=== PATIENT | female | born 1990 | race African-American/Black ===

== ENCOUNTER → 2022-11-19 10:37 | Outpatient (BNVA) | payer OTHER, SELFPAY | PROVIDERS: PCP Internal Medicine; Referring Provider Internal Medicine; Visit Provider Physician Assistant Surgical ==

== ENCOUNTER → 2022-12-19 14:12 | Outpatient (BNVA) | payer OTHER, SELFPAY | PROVIDERS: PCP Internal Medicine; Visit Provider Physician Assistant Surgical | DX: E66.01 Morbid (severe) obesity due to excess calories (principal); Z68.41 Body mass index [BMI] 40.0-44.9, adult | CPT/HCPCS: 99202 ==

== ENCOUNTER 2023-01-11 09:10 | Outpatient (REF) | payer OTHER, SELFPAY ==
[2023-01-11 11:26] LABS: Estimated Average Glucose 94 mg/dL; Hemoglobin A1c % 4.9 %
[2023-01-16 00:52] LABS: Zinc 71 mcg/dL (60-130)
[2023-01-16 05:09] LABS: Vitamin A 38 mcg/dL (38-98)
[2023-01-16 14:53] LABS: Vitamin B1 9 nmol/L (8-30)
[2023-01-17 09:09] LABS: H Pylori Breath Test Positive (Negative)
== END 2023-01-11 09:11 | disposition home or self-care (01) ==
LOC: HO.LAB 09:10
PROVIDERS: PCP Internal Medicine; Visit Provider Physician Assistant Surgical
DX: E66.01 Morbid (severe) obesity due to excess calories (principal)
CPT/HCPCS: 36415; 80053; 80061; 82306; 82607; 82728; 82746; 83013; 83036; 83525; 83540; 83970; 84425; 84443; 84590; 84630; 85025; 86140; 99211; 99212

== ENCOUNTER 2023-01-21 10:57 | Outpatient (AMB) | payer OTHER, SELFPAY ==
--- NOTE | 2023-01-21 11:13 | A.OFFVIS_ITS ---
Intake Intake Visit Reasons: (OV) Initial Nutrition [facility] Director Of Strategic Partnerships Required: No Allergies No Known Allergies Allergy (Verified 01/11/23 09:31) HPI Nutrition Presentation Reason for consult elevated BMI Diet Assmnt Details Wakes up at 6:30-7am 8-10am Premade Premier protein 30g Atkins protein bar 3pm shake 6:30pm dinner meal chicken and salad with boiled eggs . Half sweet potato with chicken and brocooli . She likes to meal and Sundays for the entire week. Has two children ages 11 and 5 , cooks them a separate meal. Exercise: going to the gym daily everyday 2 miles on the treadmill. [facility] online classes: 07/15 Dietary counseling reduction Who buys your food self Who prepares/cooks your food self Meal frequency regular: breakfast, lunch, dinner (Spaghetti, ) and snacks Lifestyle Eating out 4 or more times/week Food frequency Dairy: daily (lactaid, cheese, yogurt), Fruit: daily, Vegetables: daily (canned ), Meats/poultry/fish (protein): daily (minimal fish, eats chicken, beef ), Water: daily (seltzer water ), Soda: never, Juice: several times weekly (and sweetened ) and Coffee: several times weekly (AM coffee) Diagnosis Nutrition problem #1 overweight/obesity As related to (etiology) #1 excess energy intake and physical inactivity As evidenced by (sign/symptom) #1 high BMI Monitoring/Goals Nutrition problem monitoring total energy intake, level of knowledge/skill, total PRO intake, total CHO intake and weight Outcome progress progressing Learning/Education Readiness to learn good Stages of change action Educational materials provided Yes Most Recent Diabetes Results: Cholesterol 178 mg/dL 01/11/23 HDL Cholesterol 41 mg/dL 01/11/23 Triglycerides 63 mg/dL 01/11/23 Creatinine 0.86 mg/dL (0.5-1.4) 01/11/23 Blood Urea Nitrogen 13 mg/dL (9-16) 01/11/23 Sodium 141 mmol/L (135-145) 01/11/23 Potassium 4.2 mmol/L (3.3-5.1) 01/11/23 Chloride 108 mmol/L (96-108) 01/11/23 Carbon Dioxide 25 mmol/L (22-29) 01/11/23 Calcium 9.6 mg/dL (8.4-10.2) 01/11/23 AST 19 U/L (5-31) 01/11/23 ALT 25 U/L (0-31) 01/11/23 Total Protein 8.1 g/dL (6.5-8.0) H 01/11/23 Albumin 4.4 g/dL (3.5-5.0) 01/11/23 PFSH Surgical History Hx of section Hx of plastic surgery Family History Mother Thyroid condition Father No problems noted. Brother No problems noted. Brother No problems noted. Son Asthma Son Allergies Social History Alcohol intake: never Patient Tobacco Use Status: Never used Tobacco Assessment & Plan Assessment & Plan (1) Obesity (BMI 30-39.9): Code(s): E66.9 - Obesity, unspecified Patient Instructions: Patient is doing well, she will continue her nutrition plan. Okay to have a Swedish yogurt during the day if hungry. Increase exercise as tolerated. Complete online classes. Advised to get chest x-ray and EKG done today. Follow-up with me 02/21 at 10:00 video Coding Level of Care Code Nutr Indiv Intake (83790) Diagnoses Obesity (BMI 30-39.9) E66.9 Time Spent (min) 35
== END 2023-01-21 11:37 | disposition home or self-care (01) ==
PROVIDERS: PCP Internal Medicine; Visit Provider Dietitian, Registered
DX: E66.9 Obesity, unspecified (principal)

== ENCOUNTER → 2023-01-21 10:57 | Outpatient (BNVA) | payer OTHER, SELFPAY | PROVIDERS: PCP Internal Medicine; Visit Provider Dietitian, Registered | DX: E66.01 Morbid (severe) obesity due to excess calories (principal); Z71.3 Dietary counseling and surveillance | CPT/HCPCS: 97802 ==

== ENCOUNTER → 2023-01-30 10:21 | Outpatient (REF) | payer OTHER, SELFPAY ==
--- NOTE | ~2023-01-30 | XR_ITS ---
EXAMINATION: XR CHEST CLINICAL INFORMATION: Morbid/severe obesity due to excess calories COMPARISON: None available. TECHNIQUE: 2 views of the chest were obtained. FINDINGS: No significant abnormality is noted involving the heart, lungs, mediastinum, bony thorax or soft tissues. XR/XR chest 2V IMPRESSION: Unremarkable chest examination.
--- NOTE | 2023-01-30 10:28 | ECG_ITS ---
Test Reason : E66.01 Blood Pressure : / mmHG Vent. Rate : 065 BPM Atrial Rate : 065 BPM P-R Int : 188 ms QRS Dur : 082 ms QT Int : 390 ms P-R-T Axes : 015 013 -08 degrees QTc Int : 405 ms Normal sinus rhythm Normal ECG No previous ECGs available Referred By: Angela Jackson Electronically Signed By:LYNSEY WESTFALL MD
== END ==
LOC: HO.CARD 10:21
PROVIDERS: PCP Internal Medicine; Visit Provider Physician Assistant Surgical
DX: E66.01 Morbid (severe) obesity due to excess calories (principal)
CPT/HCPCS: 71046; 93005

== ENCOUNTER → 2023-01-30 10:28 | Outpatient (BNV) | payer OTHER, SELFPAY | PROVIDERS: PCP Internal Medicine; Visit Provider Internal Medicine Cardiovascular Disease | DX: E66.01 Morbid (severe) obesity due to excess calories (principal) | CPT/HCPCS: 93010 ==

== ENCOUNTER 2023-02-12 16:10 | Outpatient (AMB) | payer OTHER, SELFPAY ==
--- NOTE | 2023-02-12 16:04 | MHC.OFFVISWM ---
Intake VS Expanded 02/12/23 16:13 Height 5 ft 6 in Weight 236 lb BMI 38.1 Intake Visit Reasons: (OV) F/U SWL Allergies No Known Allergies Allergy (Verified 01/11/23 09:31) Medication List - Last Reconciled 02/12/23 by TRACI Peña amoxicillin 1,000 mg (2 x 500 mg) PO Q12H 14 days cholecalciferol (vitamin D3) 50 mcg PO DAILY clarithromycin 500 mg PO Q12H 14 days omeprazole 40 mg PO DAILY 14 days ondansetron 4 mg PO Q8H PRN HPI HPI Comments History of Present Illness Details The patient is a pleasant 32 year old female who returns to the clinic for pre-operative surgical weight loss management.? They were last seen in the office on 01/11/2023, recorded weight at that time was 241 pounds, with a BMI of 38.9.? Today's weight is 236 pounds and BMI is 38.1.? There has been a weight loss of 15.2 pounds since initiating the surgical weight loss program on 12/19/2022 with a total body weight loss of 6.05%. Pre op work up completed as follows: SWL classes:? 08/15 appts: nothing scheduled ?? RD appts: 01/11- needs f/u 02/21 Labs: 01/11- low vit D, high PTH H. pylori: 01/11- positive, currently undergoing treatment, got nausea with clarithromycin so skipped a few doses CXR: 01/30, unremarkable EK/26, NSR ABD U/S: 02/25 UGI: 02/25 Current meal plan includes: Premier Protein shakes- 2 scoops in 8oz unsweetened almond milk at 8am-10am, and 1 scoop in 8oz unsweetened almond milk at 3pm-5pm 2 protein bars (Atkins or [employer]) at 12pm-2pm and 8:30pm-10:30pm per day Dinner at 7pm- 8 forks of protein and 8 forks of salad/vegetables getting tired of bars Pt reports she sometimes has been having her meal at 3pm, and having second shake at 7pm. Current exercise plan includes: goes to gym or track, 1-1.5 miles with incline and speed of 3.0, 40-45 minutes. Every day. If does not go to gym or track, will walk outside at home?? PFSH Surgical History Hx of section Hx of plastic surgery Family History Mother Thyroid condition Father No problems noted. Brother No problems noted. Brother No problems noted. Son Asthma Son Allergies Social History Alcohol intake: never Patient Tobacco Use Status: Never used Tobacco Assessment & Plan Assessment & Plan (1) Obesity: Code(s): E66.9 - Obesity, unspecified Plan Pt needs BH clearance, RD f/u, UGI and abd US pending. Will retest for H. pylori when course complete; encouraged pt to take clarithromycin around 9am after she has had the chance to drink some of her shake. No other changes made today to meal plan. Encouraged calorie tracking and aim for 300 aviva/day burned via exercise if she is walking daily. Finish watching [employer] classes. Next visit with Dr. Perez in 2-3 weeks for first preop visit; will also schedule appt. Patient is obese and is not considered stable at this time. I spent a total of 30 minutes reviewing/updating records, examining the patient and counseling the patient on weight management as detailed above. Medications: New ondansetron 4 mg PO Q8H PRN 10 tabs 0RF nausea and vomiting Telehealth Telehealth Location of provider rendering services: practice address Location of patient: other Patient Identification confirmed using: Name, : Yes Telehealth method: video Patient verbally consented to treatment: Yes Patient verbally consented to billing insurance company: Yes Patient informed of any privacy concerns related to visit: Yes Coding Level of Care Code Tele Est Pt Level 4 (60608) Diagnoses Obesity E66.9
[2023-02-12 16:13] VITALS: BMI 38.1
== END 2023-02-12 16:27 | disposition home or self-care (01) ==
LOC: HO.HBS 16:10
PROVIDERS: PCP Internal Medicine; Visit Provider Physician Assistant Surgical
DX: E66.9 Obesity, unspecified (principal); Z68.38 Body mass index [BMI] 38.0-38.9, adult
CPT/HCPCS: 99214

== ENCOUNTER → 2023-02-12 16:10 | Outpatient (BNVA) | payer OTHER, SELFPAY | PROVIDERS: PCP Internal Medicine; Visit Provider Physician Assistant Surgical ==

== ENCOUNTER → 2023-02-21 10:11 | Outpatient (BNVA) | payer OTHER, SELFPAY | PROVIDERS: PCP Internal Medicine; Visit Provider Dietitian, Registered | DX: E66.9 Obesity, unspecified (principal); Z68.37 Body mass index [BMI] 37.0-37.9, adult | CPT/HCPCS: 97803 ==